=== PATIENT | female | born 1960 | race African-American/Black ===

== ENCOUNTER 2021-11-26 19:10 | Inpatient (IN) | payer MEDICAID ==
[~2021-11-26] VITALS: Ht 149.9 cm; Wt 65.3 kg
[2021-11-26] MEDS ORDERED: MORPHINE SULFATE 4 MG/ML CPJ (NOT FOR IM USE) IV STA (19:37)
[2021-11-26] MEDS ORDERED: ONDANSETRON HCL 4MG/2ML INJ IV STA (19:37)
[2021-11-26] MEDS ORDERED: SODIUM CHLORIDE 0.9% 1,000 ML IV ONE (19:45)
[2021-11-26 21:36] LABS: HEMATOCRIT. 34.8 % (36.0-48.0); HEMOGLOBIN. 11.6 g/dL (12.0-16.0); MEAN CORPUSCULAR HEMOGLOBIN 27.9 pg (28.0-32.0); MEAN PLATELET VOLUME 7.3 fl (7.4-10.4); PLATELET 950 x1000/uL (130-400); RED BLOOD CELL COUNT 4.14 mill/uL (4.2-5.4)
[2021-11-26 21:41] LABS: CHLORIDE 100 mEq/L (98-107); INR 1.4
[2021-11-26] MEDS ORDERED: VANCOMYCIN 1G PREMIX 200 ML IV ONE (21:45)
[2021-11-26] MEDS ORDERED: PIPERACILLIN/TAZ 3.375G PREMIX 50 ML IV NR (22:00)
[2021-11-26] MEDS ORDERED: SODIUM CHLORIDE 0.9% 1000ML BAG (SEPSIS BOLUS) IV NR (22:00)
[2021-11-26] MEDS ORDERED: VANCOMYCIN 1,000 MG in DEXT 5% WATER 250 ML IV NR (22:00)
[2021-11-26] MEDS ORDERED: VANCOMYCIN 1GM PMX (XELLIA) 200 ML IV NR (22:15)
[2021-11-26 22:19] LABS: CLARITY URINE CLOUDY (CLEAR); COLOR URINE DARK YELLOW (YELLOW); KETONES URINE 3+ (NEGATIVE); LEUKOCYTE ESTERASE URINE 1+ (NEGATIVE); NITRITE URINE POSITIVE (NEGATIVE); OCCULT BLOOD URINE 2+ (NEGATIVE); PH URINE 5.5 (4.5-8.0); PROTEIN URINE 1+ (NEGATIVE); SPECIFIC GRAVITY URINE 1.025 (1.005-1.030)
[2021-11-26 23:40] LABS: PLATELET ESTIMATE MARKEDLY INCREASED
[2021-11-27] MEDS ORDERED: MORPHINE SULFATE 4 MG/ML CPJ (NOT FOR IM USE) IV ONE
[2021-11-27] MEDS ORDERED: HYDROCODONE/ACETAMINOPHEN 10/325MG TABLET PO PRN (06:00)
[2021-11-27] MEDS: ONDANSETRON HCL 4MG/2ML INJ IV PRN ×2 (06:09→11:01)
[2021-11-27] MEDS ORDERED: IOHEXOL-300 100 ML BOTTLE ONE (06:14)
[2021-11-27] MEDS ORDERED: NALOXONE HCL 0.4 MG/ML 1ML VIAL IV PRN (06:15)
[2021-11-27] MEDS ORDERED: MORPHINE SULFATE 2 MG/ML CPJ (NOT FOR IM USE) IV NR (10:00)
[2021-11-27] MEDS: PANTOPRAZOLE SODIUM 40 MG/VIAL IV SCH (13:28)
[2021-11-27] MEDS: DEXT 5%/0.45% NACL 1000ML 1,000 ML IV SCH ×2 (13:28→21:40)
[2021-11-27 15:46] VITALS: BP 123/70
[2021-11-27 16:00] VITALS: BP 123/73
[2021-11-27 16:23] VITALS: BP 123/73
[2021-11-27] MEDS: MORPHINE SULFATE 2 MG/ML CPJ (NOT FOR IM USE) IV PRN (17:31)
[2021-11-27] MEDS: PIPERACILLIN/TAZOBACTAM 3.375 G in DEXTROSE 5% WATER 50 ML IV SCH ×2 (17:31→23:35)
[2021-11-27] MEDS: VANCOMYCIN 750MG PMX (XELLIA) 150 ML IV SCH (17:31)
[2021-11-27 20:00] VITALS: BP 124/77
[2021-11-28] VITALS: BP 129/77
[2021-11-28 04:00] VITALS: BP 123/78
[2021-11-28] MEDS: VANCOMYCIN 750MG PMX (XELLIA) 150 ML IV SCH (05:24)
[2021-11-28] MEDS: PIPERACILLIN/TAZOBACTAM 3.375 G in DEXTROSE 5% WATER 50 ML IV SCH ×3 (06:01→21:07)
[2021-11-28 07:20] LABS: HEMATOCRIT. 27.3 % (36.0-48.0); HEMOGLOBIN. 8.8 g/dL (12.0-16.0); MEAN CORPUSCULAR HEMOGLOBIN 26.9 pg (28.0-32.0); MEAN PLATELET VOLUME 7.3 fl (7.4-10.4); PLATELET 713 x1000/uL (130-400); RED BLOOD CELL COUNT 3.26 mill/uL (4.2-5.4)
[2021-11-28 07:39] LABS: CHLORIDE 109 mEq/L (98-107)
[2021-11-28 08:00] VITALS: BP 130/76
[2021-11-28] MEDS: PANTOPRAZOLE SODIUM 40 MG/VIAL IV SCH ×2 (09:21→21:07)
[2021-11-28 12:00] VITALS: BP 139/79
[2021-11-28] MEDS ORDERED: POTASSIUM CHLORIDE INJ 40 MEQ in DEXT 5% WATER 250 ML IV NR (12:00)
[2021-11-28] MEDS: DEXT 5%/0.45% NACL 1000ML 1,000 ML IV SCH ×2 (12:42→21:08)
[2021-11-28] MEDS ORDERED: LIDOCAINE HCL 1% 10 MG/ML 10ML VIAL ONE (13:27)
[2021-11-28 16:00] VITALS: BP 135/76
[2021-11-28] MEDS: VANCOMYCIN 1GM PMX (XELLIA) 200 ML IV SCH (17:21)
[2021-11-28 17:56] LABS: PLATELET ESTIMATE INCREASED
[2021-11-28 20:00] VITALS: BP 123/71
[2021-11-28 21:54] LABS: HEMATOCRIT 26.5 % (36.0-48.0); HEMOGLOBIN 8.7 g/dL (12.0-16.0)
[2021-11-29] VITALS: BP 127/75
[2021-11-29 04:00] VITALS: BP 129/72
[2021-11-29] MEDS: DEXT 5%/0.45% NACL 1000ML 1,000 ML IV SCH ×2 (04:16→14:08)
[2021-11-29] MEDS: PIPERACILLIN/TAZOBACTAM 3.375 G in DEXTROSE 5% WATER 50 ML IV SCH ×3 (05:42→21:40)
[2021-11-29 07:15] LABS: HEMATOCRIT 25.9 % (36.0-48.0); HEMOGLOBIN 8.6 g/dL (12.0-16.0)
[2021-11-29 07:34] LABS: CHLORIDE 110 mEq/L (98-107)
[2021-11-29 08:05] VITALS: BP 130/77
[2021-11-29] MEDS: PANTOPRAZOLE SODIUM 40 MG/VIAL IV SCH ×2 (08:15→21:39)
[2021-11-29] MEDS: VANCOMYCIN 1GM PMX (XELLIA) 200 ML IV SCH ×2 (11:30→20:50)
[2021-11-29 12:00] VITALS: BP 136/71
[2021-11-29 13:17] LABS: HEMATOCRIT 27.6 % (36.0-48.0); HEMOGLOBIN 8.8 g/dL (12.0-16.0)
[2021-11-29] MEDS ORDERED: POTASSIUM CHLORIDE INJ 40 MEQ in DEXT 5% WATER 250 ML IV NR (15:00)
[2021-11-29] MEDS: MORPHINE SULFATE 2 MG/ML CPJ (NOT FOR IM USE) IV PRN (15:42)
[2021-11-29 16:03] VITALS: BP 130/65
[2021-11-29] MEDS: DEXT 5%/0.45% NACL KCL 40MEQ/L 1,000 ML IV SCH (17:30)
[2021-11-29 20:00] VITALS: BP 134/71
[2021-11-30] VITALS: BP 132/86
[2021-11-30] MEDS: DEXT 5%/0.45% NACL KCL 40MEQ/L 1,000 ML IV SCH ×3 (01:36→17:20)
[2021-11-30 04:00] VITALS: BP 136/79
[2021-11-30] MEDS: PIPERACILLIN/TAZOBACTAM 3.375 G in DEXTROSE 5% WATER 50 ML IV SCH ×3 (06:17→21:31)
[2021-11-30 07:39] LABS: HEMATOCRIT. 27.9 % (36.0-48.0); HEMOGLOBIN. 9.1 g/dL (12.0-16.0); MEAN CORPUSCULAR HEMOGLOBIN 27.4 pg (28.0-32.0); MEAN CORPUSCULAR VOLUME 83.8 fL (81.0-99.0); MEAN PLATELET VOLUME 7.4 fl (7.4-10.4); PLATELET 680 x1000/uL (130-400); RED BLOOD CELL COUNT 3.33 mill/uL (4.2-5.4); RED CELL DISTRIBUTION WIDTH 16.9 % (11.6-14.6)
[2021-11-30 07:53] LABS: CHLORIDE 110 mEq/L (98-107)
[2021-11-30 08:00] VITALS: BP 160/106
[2021-11-30 08:12] LABS: CREATINE KINASE 34 IU/L (26-192)
[2021-11-30] MEDS: VANCOMYCIN 1GM PMX (XELLIA) 200 ML IV SCH ×2 (08:48→20:13)
[2021-11-30] MEDS ORDERED: PANTOPRAZOLE SODIUM 40 MG/VIAL IV ONE (11:29)
[2021-11-30] MEDS ORDERED: MORPHINE SULFATE 2 MG/ML CPJ (NOT FOR IM USE) IV ONE ×2 (11:30→11:56)
[2021-11-30] MEDS: MORPHINE SULFATE 2 MG/ML CPJ (NOT FOR IM USE) IV PRN ×2 (11:52→18:40)
[2021-11-30] MEDS: PANTOPRAZOLE SODIUM 40 MG/VIAL IV SCH ×2 (11:52→21:31)
[2021-11-30 12:00] VITALS: BP_SYST 131; BP_SYST 156; BP_DIAS 71; BP_DIAS 93
[2021-11-30 13:14] LABS: PLATELET ESTIMATE INCREASED
[2021-11-30 16:00] VITALS: BP 136/71
[2021-11-30 20:00] VITALS: BP 149/75
[2021-12-01] VITALS: BP 135/79
[2021-12-01] MEDS: DEXT 5%/0.45% NACL KCL 40MEQ/L 1,000 ML IV SCH ×3 (02:04→17:00)
[2021-12-01 04:00] VITALS: BP 142/65
[2021-12-01] MEDS: PIPERACILLIN/TAZOBACTAM 3.375 G in DEXTROSE 5% WATER 50 ML IV SCH ×3 (06:28→21:15)
[2021-12-01 07:27] LABS: HEMOGLOBIN. 9.1 g/dL (12.0-16.0); MEAN CORPUSCULAR HEMOGLOBIN 27.2 pg (28.0-32.0); MEAN CORPUSCULAR VOLUME 84.3 fL (81.0-99.0); MEAN PLATELET VOLUME 7.2 fl (7.4-10.4); PLATELET 614 x1000/uL (130-400); RED BLOOD CELL COUNT 3.33 mill/uL (4.2-5.4); RED CELL DISTRIBUTION WIDTH 16.9 % (11.6-14.6)
[2021-12-01 07:58] LABS: CHLORIDE 109 mEq/L (98-107)
[2021-12-01 08:00] VITALS: BP 140/81
[2021-12-01] MEDS: MORPHINE SULFATE 2 MG/ML CPJ (NOT FOR IM USE) IV PRN ×2 (09:50→21:10)
[2021-12-01] MEDS: VANCOMYCIN 1GM PMX (XELLIA) 200 ML IV SCH ×2 (10:23→20:49)
[2021-12-01 12:00] VITALS: BP 145/86
[2021-12-01] MEDS: PANTOPRAZOLE SODIUM 40 MG/VIAL IV SCH ×2 (12:49→21:07)
[2021-12-01 14:30] LABS: PLATELET ESTIMATE INCREASED
[2021-12-01 16:00] VITALS: BP 131/80
[2021-12-01 20:00] VITALS: BP 138/76
[2021-12-02] VITALS: BP 157/82
[2021-12-02] MEDS: DEXT 5%/0.45% NACL KCL 40MEQ/L 1,000 ML IV SCH ×2 (02:15→15:45)
[2021-12-02 04:00] VITALS: BP 136/86
[2021-12-02] MEDS: PIPERACILLIN/TAZOBACTAM 3.375 G in DEXTROSE 5% WATER 50 ML IV SCH (06:13)
[2021-12-02 06:31] LABS: HEMATOCRIT. 28.2 % (36.0-48.0); HEMOGLOBIN. 9.1 g/dL (12.0-16.0); MEAN CORPUSCULAR HEMOGLOBIN 27.9 pg (28.0-32.0); MEAN CORPUSCULAR VOLUME 86.1 fL (81.0-99.0); MEAN PLATELET VOLUME 7.3 fl (7.4-10.4); PLATELET 663 x1000/uL (130-400); RED BLOOD CELL COUNT 3.27 mill/uL (4.2-5.4); RED CELL DISTRIBUTION WIDTH 17.1 % (11.6-14.6)
[2021-12-02 06:45] LABS: CHLORIDE 111 mEq/L (98-107)
[2021-12-02 08:00] VITALS: BP 131/56
[2021-12-02] MEDS: VANCOMYCIN 1GM PMX (XELLIA) 200 ML IV SCH ×2 (09:03→21:49)
[2021-12-02] MEDS: MORPHINE SULFATE 2 MG/ML CPJ (NOT FOR IM USE) IV PRN (09:04)
[2021-12-02] MEDS: PANTOPRAZOLE SODIUM 40 MG/VIAL IV SCH ×2 (11:45→21:49)
[2021-12-02 12:00] VITALS: BP 151/88
[2021-12-02 12:19] LABS: PLATELET ESTIMATE INCREASED
[2021-12-02 16:00] VITALS: BP 139/87
[2021-12-02] MEDS ORDERED: MORPHINE SULFATE 2 MG/ML CPJ (NOT FOR IM USE) IV PRN ×3 (17:32→21:45)
[2021-12-02 20:00] VITALS: BP 134/78
[2021-12-03] VITALS: BP 142/86
[2021-12-03] MEDS: DEXT 5%/0.45% NACL KCL 40MEQ/L 1,000 ML IV SCH ×3 (00:52→17:18)
[2021-12-03] MEDS: MORPHINE SULFATE 4 MG/ML CPJ (NOT FOR IM USE) IV PRN ×4 (01:43→23:41)
[2021-12-03 04:00] VITALS: BP 184/82
[2021-12-03 08:00] VITALS: BP 145/88
[2021-12-03 08:02] LABS: CHLORIDE 110 mEq/L (98-107)
[2021-12-03 08:07] LABS: HEMATOCRIT. 26.7 % (36.0-48.0); HEMOGLOBIN. 8.9 g/dL (12.0-16.0); MEAN CORPUSCULAR HEMOGLOBIN 28.1 pg (28.0-32.0); MEAN CORPUSCULAR VOLUME 84.3 fL (81.0-99.0); MEAN PLATELET VOLUME 7.3 fl (7.4-10.4); PLATELET 629 x1000/uL (130-400); RED BLOOD CELL COUNT 3.16 mill/uL (4.2-5.4); RED CELL DISTRIBUTION WIDTH 16.9 % (11.6-14.6)
[2021-12-03] MEDS: VANCOMYCIN 1GM PMX (XELLIA) 200 ML IV SCH ×2 (09:01→21:22)
[2021-12-03] MEDS: PANTOPRAZOLE SODIUM 40 MG/VIAL IV SCH ×2 (09:03→21:22)
[2021-12-03 12:00] VITALS: BP 140/82
[2021-12-03 13:52] LABS: PLATELET ESTIMATE INCREAS
[2021-12-03 16:00] VITALS: BP 139/80
[2021-12-03 20:00] VITALS: BP 121/73
[2021-12-04] VITALS: BP 146/80
[2021-12-04 04:00] VITALS: BP 139/85
[2021-12-04 08:00] VITALS: BP 151/87
[2021-12-04] MEDS: DEXT 5%/0.45% NACL KCL 40MEQ/L 1,000 ML IV SCH ×2 (09:00→17:30)
[2021-12-04] MEDS: PANTOPRAZOLE SODIUM 40 MG/VIAL IV SCH ×2 (09:33→22:40)
[2021-12-04] MEDS: VANCOMYCIN 1GM PMX (XELLIA) 200 ML IV SCH (09:33)
[2021-12-04] MEDS: MORPHINE SULFATE 4 MG/ML CPJ (NOT FOR IM USE) IV PRN ×2 (09:34→17:31)
[2021-12-04 12:00] VITALS: BP 143/82
[2021-12-04 16:00] VITALS: BP 149/77
[2021-12-04 20:00] VITALS: BP 146/79
[2021-12-04] MEDS: TOTAL PARENTERAL NUTRITION 1,600 ML IV SCH (22:40)
[2021-12-04] MEDS: PHYTONADIONE 10MG/ML AMP SUBCUT SCH (22:42)
[2021-12-05] VITALS: BP 133/78
[2021-12-05] MEDS: BLOOD SUGAR DIAGNOSTIC STRIP TEST SCH ×5 (00:21→23:11)
[2021-12-05 04:00] VITALS: BP 156/73
[2021-12-05] MEDS: MORPHINE SULFATE 4 MG/ML CPJ (NOT FOR IM USE) IV PRN ×2 (04:12→18:23)
[2021-12-05] MEDS ORDERED: VANCOMYCIN 1GM PMX (XELLIA) 200 ML IV SCH (06:00)
[2021-12-05 06:01] LABS: BASOPHILS % 0.4 % (0.0-2.0); EOSINOPHILS % 0.6 % (0.0-5.0); HEMATOCRIT. 26.4 % (36.0-48.0); HEMOGLOBIN. 8.8 g/dL (12.0-16.0); LYMPHOCYTES % 10.2 % (20.0-50.0); MEAN CORPUSCULAR HEMOGLOBIN 27.9 pg (28.0-32.0); MEAN CORPUSCULAR VOLUME 83.2 fL (81.0-99.0); MONOCYTES % 12.4 % (2.0-8.0); NEUTROPHILS % 76.4 % (40.0-76.0); PLATELET 605 x1000/uL (130-400); RED BLOOD CELL COUNT 3.17 mill/uL (4.2-5.4); RED CELL DISTRIBUTION WIDTH 17.5 % (11.6-14.6)
[2021-12-05 07:45] LABS: CHLORIDE 108 mEq/L (98-107)
[2021-12-05 07:58] LABS: PHOSPHORUS 2.8 mg/dL (2.5-4.9)
[2021-12-05 08:28] VITALS: BP 114/79
[2021-12-05] MEDS: PANTOPRAZOLE SODIUM 40 MG/VIAL IV SCH ×2 (08:52→20:57)
[2021-12-05] MEDS ORDERED: NALOXONE HCL 0.4MG/ML VIAL IV PRN (11:15)
[2021-12-05 12:20] VITALS: BP 124/87
[2021-12-05] MEDS: VANCOMYCIN 1GM PMX (XELLIA) 200 ML IV SCH (13:40)
[2021-12-05 16:00] VITALS: BP 110/85
[2021-12-05] MEDS: ONDANSETRON HCL 4MG/2ML INJ IV PRN (18:23)
[2021-12-05 20:00] VITALS: BP 146/80
[2021-12-05] MEDS: FAT EMULSIONS 250 ML IV SCH ×2 (20:57→23:11)
[2021-12-05] MEDS ORDERED: FAT EMULSIONS 500 ML IV SCH (21:00)
[2021-12-05] MEDS: TOTAL PARENTERAL NUTRITION 1,600 ML IV SCH (22:15)
[2021-12-06] VITALS: BP 150/81
[2021-12-06] MEDS: MORPHINE SULFATE 4 MG/ML CPJ (NOT FOR IM USE) IV PRN ×5 (01:33→23:40)
[2021-12-06 04:00] VITALS: BP 147/73
[2021-12-06] MEDS: BLOOD SUGAR DIAGNOSTIC STRIP TEST SCH ×2 (05:39→12:51)
[2021-12-06 06:51] LABS: BASOPHILS % 0.6 % (0.0-2.0); EOSINOPHILS % 1.1 % (0.0-5.0); HEMATOCRIT. 28.4 % (36.0-48.0); HEMOGLOBIN. 9.3 g/dL (12.0-16.0); LYMPHOCYTES % 14.1 % (20.0-50.0); MEAN CORPUSCULAR VOLUME 85.5 fL (81.0-99.0); MEAN PLATELET VOLUME 6.8 fl (7.4-10.4); MONOCYTES % 7.2 % (2.0-8.0); PLATELET 487 x1000/uL (130-400); RED BLOOD CELL COUNT 3.32 mill/uL (4.2-5.4); RED CELL DISTRIBUTION WIDTH 17.6 % (11.6-14.6)
[2021-12-06 06:57] LABS: INR 1.1; PARTIAL THROMBOPLASTIN TIME 25.6 sec (23.4-31.0); PROTHROMBIN TIME 11.8 sec (9.6-11.0)
[2021-12-06 07:12] LABS: CHLORIDE 106 mEq/L (98-107)
[2021-12-06] MEDS: VANCOMYCIN 1GM PMX (XELLIA) 200 ML IV SCH (08:00)
[2021-12-06] MEDS: PANTOPRAZOLE SODIUM 40 MG/VIAL IV SCH ×2 (09:00→23:40)
[2021-12-06] MEDS ORDERED: HYDROMORPHONE HCL/PF 2MG/ML CPJ IV PRN (10:00)
[2021-12-06] MEDS ORDERED: MEPERIDINE HCL/PF 25MG/ML CPJ IV PRN (10:00)
[2021-12-06] MEDS ORDERED: ONDANSETRON HCL 4MG/2ML INJ IV PRN (10:00)
[2021-12-06] MEDS: FENTANYL CITRATE/PF 50MCG/ML 2ML VIAL IV PRN ×4 (10:21→11:03)
[2021-12-06 12:18] VITALS: BP 151/93
[2021-12-06 16:00] VITALS: BP 158/91
[2021-12-06 20:00] VITALS: BP 156/75
[2021-12-06] MEDS: TOTAL PARENTERAL NUTRITION 1,600 ML IV SCH (21:00)
[2021-12-07] VITALS: BP 155/87
[2021-12-07] MEDS: VANCOMYCIN 1GM PMX (XELLIA) 200 ML IV SCH ×2 (01:20→23:12)
[2021-12-07 04:00] VITALS: BP 139/85
[2021-12-07 05:21] LABS: HEMATOCRIT. 29.2 % (36.0-48.0); HEMOGLOBIN. 9.4 g/dL (12.0-16.0); MEAN CORPUSCULAR HEMOGLOBIN 27.2 pg (28.0-32.0); MEAN CORPUSCULAR VOLUME 84.2 fL (81.0-99.0); MEAN PLATELET VOLUME 7.2 fl (7.4-10.4); PLATELET 526 x1000/uL (130-400); RED BLOOD CELL COUNT 3.46 mill/uL (4.2-5.4); RED CELL DISTRIBUTION WIDTH 17.7 % (11.6-14.6)
[2021-12-07 05:52] LABS: CHLORIDE 109 mEq/L (98-107)
[2021-12-07] MEDS: BLOOD SUGAR DIAGNOSTIC STRIP TEST SCH ×4 (06:46→17:53)
[2021-12-07] MEDS: MORPHINE SULFATE 4 MG/ML CPJ (NOT FOR IM USE) IV PRN ×3 (06:58→21:30)
[2021-12-07 08:00] VITALS: BP 116/72
[2021-12-07] MEDS: PANTOPRAZOLE SODIUM 40 MG/VIAL IV SCH ×2 (10:01→21:30)
[2021-12-07 11:21] LABS: PLATELET ESTIMATE INCREASED
[2021-12-07 12:00] VITALS: BP 121/73
[2021-12-07 16:00] VITALS: BP 120/71
[2021-12-07] MEDS: TOTAL PARENTERAL NUTRITION 1,600 ML IV SCH (18:16)
[2021-12-07] MEDS: FAT EMULSIONS 250 ML IV SCH (18:27)
[2021-12-07 20:00] VITALS: BP 141/86
[2021-12-08] VITALS (7 sets, daily range): BP systolic 120–139; BP diastolic 46–88
[2021-12-08] MEDS: FAT EMULSIONS 250 ML IV SCH (02:08)
[2021-12-08 06:56] LABS: HEMATOCRIT. 26.6 % (36.0-48.0); HEMOGLOBIN. 8.7 g/dL (12.0-16.0); MEAN CORPUSCULAR VOLUME 82.8 fL (81.0-99.0); MEAN PLATELET VOLUME 7.3 fl (7.4-10.4); PLATELET 439 x1000/uL (130-400); RED BLOOD CELL COUNT 3.22 mill/uL (4.2-5.4); RED CELL DISTRIBUTION WIDTH 17.8 % (11.6-14.6)
[2021-12-08 07:10] LABS: CHLORIDE 108 mEq/L (98-107)
[2021-12-08] MEDS: PANTOPRAZOLE SODIUM 40 MG/VIAL IV SCH ×2 (08:31→21:31)
[2021-12-08] MEDS: BLOOD SUGAR DIAGNOSTIC STRIP TEST SCH (08:39)
[2021-12-08 09:42] LABS: PLATELET ESTIMATE SLIGHTLY INCREASED
[2021-12-08] MEDS: VANCOMYCIN 750MG PMX (XELLIA) 150 ML IV SCH ×2 (10:36→21:31)
[2021-12-08] MEDS: MORPHINE SULFATE 4 MG/ML CPJ (NOT FOR IM USE) IV PRN ×2 (12:38→21:31)
[2021-12-08] MEDS: TOTAL PARENTERAL NUTRITION 1,600 ML IV SCH (21:31)
[2021-12-09] VITALS: BP 126/74
[2021-12-09 06:00] VITALS: BP 117/73
[2021-12-09 07:38] LABS: BASOPHILS % 0.5 % (0.0-2.0); EOSINOPHILS % 1.1 % (0.0-5.0); HEMOGLOBIN. 8.2 g/dL (12.0-16.0); LYMPHOCYTES % 8.4 % (20.0-50.0); MEAN CORPUSCULAR HEMOGLOBIN 27.2 pg (28.0-32.0); MEAN CORPUSCULAR VOLUME 82.8 fL (81.0-99.0); MEAN PLATELET VOLUME 7.6 fl (7.4-10.4); PLATELET 384 x1000/uL (130-400); RED BLOOD CELL COUNT 3.02 mill/uL (4.2-5.4); RED CELL DISTRIBUTION WIDTH 17.3 % (11.6-14.6)
[2021-12-09 07:44] LABS: CHLORIDE 106 mEq/L (98-107)
[2021-12-09 08:00] VITALS: BP 129/70
[2021-12-09] MEDS: PANTOPRAZOLE SODIUM 40 MG/VIAL IV SCH ×2 (08:59→21:11)
[2021-12-09] MEDS: MORPHINE SULFATE 4 MG/ML CPJ (NOT FOR IM USE) IV PRN ×3 (08:59→18:21)
[2021-12-09] MEDS: VANCOMYCIN 750MG PMX (XELLIA) 150 ML IV SCH ×2 (09:00→21:11)
[2021-12-09] MEDS: BLOOD SUGAR DIAGNOSTIC STRIP TEST SCH (09:55)
[2021-12-09 12:00] VITALS: BP 137/89
[2021-12-09 16:00] VITALS: BP 133/61
[2021-12-09 20:00] VITALS: BP 136/76
[2021-12-09] MEDS: TOTAL PARENTERAL NUTRITION 1,600 ML IV SCH (21:12)
[2021-12-10] VITALS: BP 138/78
[2021-12-10] MEDS: MORPHINE SULFATE 4 MG/ML CPJ (NOT FOR IM USE) IV PRN ×4 (03:34→22:05)
[2021-12-10 04:00] VITALS: BP 131/76
[2021-12-10 08:00] VITALS: BP 130/72
[2021-12-10] MEDS: PANTOPRAZOLE SODIUM 40 MG/VIAL IV SCH ×2 (08:39→21:27)
[2021-12-10] MEDS: VANCOMYCIN 750MG PMX (XELLIA) 150 ML IV SCH (08:40)
[2021-12-10] MEDS: BLOOD SUGAR DIAGNOSTIC STRIP TEST SCH (09:00)
[2021-12-10 10:44] LABS: BASOPHILS % 0.7 % (0.0-2.0); EOSINOPHILS % 0.8 % (0.0-5.0); HEMATOCRIT. 25.2 % (36.0-48.0); HEMOGLOBIN. 8.2 g/dL (12.0-16.0); LYMPHOCYTES % 12.1 % (20.0-50.0); MEAN CORPUSCULAR HEMOGLOBIN 27.2 pg (28.0-32.0); MEAN CORPUSCULAR VOLUME 83.9 fL (81.0-99.0); MEAN PLATELET VOLUME 7.8 fl (7.4-10.4); NEUTROPHILS % 75.4 % (40.0-76.0); PLATELET 372 x1000/uL (130-400); RED CELL DISTRIBUTION WIDTH 17.4 % (11.6-14.6)
[2021-12-10 10:52] LABS: CHLORIDE 106 mEq/L (98-107)
[2021-12-10 12:00] VITALS: BP 138/74
[2021-12-10 16:00] VITALS: BP 137/70
[2021-12-10 20:00] VITALS: BP 108/61
[2021-12-10] MEDS ORDERED: VANCOMYCIN 500 MG in DEXT 5% WATER 100 ML IV SCH (21:00)
[2021-12-11] VITALS: BP 109/71
[2021-12-11 04:00] VITALS: BP 108/75
[2021-12-11] MEDS: PANTOPRAZOLE SODIUM 40 MG/VIAL IV SCH ×2 (07:19→20:45)
[2021-12-11] MEDS: MORPHINE SULFATE 4 MG/ML CPJ (NOT FOR IM USE) IV PRN ×2 (07:20→15:50)
[2021-12-11 08:00] VITALS: BP 114/64
[2021-12-11] MEDS: BLOOD SUGAR DIAGNOSTIC STRIP TEST SCH (09:00)
[2021-12-11 12:00] VITALS: BP 122/77
[2021-12-11 16:00] VITALS: BP 126/68
[2021-12-11] MEDS ORDERED: MORPHINE SULFATE 4 MG/ML CPJ (NOT FOR IM USE) IV PRN (19:00)
[2021-12-11] MEDS: HYDROCODONE/ACETAMINOPHEN 10/325MG TABLET PO PRN (20:45)
[2021-12-11] MEDS: PHYTONADIONE 10MG/ML AMP SUBCUT SCH (20:46)
[2021-12-12 00:19] VITALS: BP 124/75
[2021-12-12 04:00] VITALS: BP 122/79
[2021-12-12 07:42] VITALS: BP 130/73
[2021-12-12] MEDS: BLOOD SUGAR DIAGNOSTIC STRIP TEST SCH (09:19)
[2021-12-12] MEDS: PANTOPRAZOLE SODIUM 40 MG/VIAL IV SCH ×2 (09:19→21:58)
[2021-12-12 11:38] VITALS: BP 124/69
[2021-12-12 16:00] VITALS: BP 135/80
[2021-12-12] MEDS: HYDROCODONE/ACETAMINOPHEN 10/325MG TABLET PO PRN (17:19)
[2021-12-12 20:00] VITALS: BP 112/73
[2021-12-13] VITALS: BP 127/67
[2021-12-13 04:00] VITALS: BP 109/63
[2021-12-13 06:39] LABS: BASOPHILS % 0.5 % (0.0-2.0); EOSINOPHILS % 0.9 % (0.0-5.0); HEMATOCRIT. 23.9 % (36.0-48.0); HEMOGLOBIN. 7.8 g/dL (12.0-16.0); LYMPHOCYTES % 17.6 % (20.0-50.0); MEAN CORPUSCULAR HEMOGLOBIN 27.4 pg (28.0-32.0); MEAN CORPUSCULAR VOLUME 84.1 fL (81.0-99.0); MEAN PLATELET VOLUME 7.7 fl (7.4-10.4); MONOCYTES % 10.8 % (2.0-8.0); NEUTROPHILS % 70.2 % (40.0-76.0); PLATELET 383 x1000/uL (130-400); RED BLOOD CELL COUNT 2.85 mill/uL (4.2-5.4); RED CELL DISTRIBUTION WIDTH 17.7 % (11.6-14.6)
[2021-12-13 07:02] LABS: CHLORIDE 108 mEq/L (98-107)
[2021-12-13 07:56] VITALS: BP 130/69
[2021-12-13] MEDS: PANTOPRAZOLE SODIUM 40 MG/VIAL IV SCH ×2 (08:53→21:24)
[2021-12-13] MEDS: BLOOD SUGAR DIAGNOSTIC STRIP TEST SCH (09:15)
[2021-12-13] MEDS: HYDROCODONE/ACETAMINOPHEN 10/325MG TABLET PO PRN ×2 (10:44→21:27)
[2021-12-13 11:55] VITALS: BP 125/67
[2021-12-13 16:38] VITALS: BP 123/79
[2021-12-13 20:00] VITALS: BP 126/68
[2021-12-14] VITALS (7 sets, daily range): BP systolic 117–152; BP diastolic 65–85
[2021-12-14 07:29] LABS: BASOPHILS % 0.6 % (0.0-2.0); EOSINOPHILS % 1.5 % (0.0-5.0); HEMATOCRIT. 23.8 % (36.0-48.0); HEMOGLOBIN. 7.8 g/dL (12.0-16.0); LYMPHOCYTES % 16.3 % (20.0-50.0); MEAN CORPUSCULAR HEMOGLOBIN 27.8 pg (28.0-32.0); MEAN CORPUSCULAR VOLUME 84.7 fL (81.0-99.0); MEAN PLATELET VOLUME 7.6 fl (7.4-10.4); MONOCYTES % 11.4 % (2.0-8.0); NEUTROPHILS % 70.2 % (40.0-76.0); PLATELET 394 x1000/uL (130-400); RED BLOOD CELL COUNT 2.81 mill/uL (4.2-5.4)
[2021-12-14 07:42] LABS: CHLORIDE 109 mEq/L (98-107)
[2021-12-14] MEDS: PANTOPRAZOLE SODIUM 40 MG/VIAL IV SCH ×2 (08:18→21:24)
[2021-12-14] MEDS: BLOOD SUGAR DIAGNOSTIC STRIP TEST SCH (08:19)
[2021-12-14] MEDS ORDERED: AMLO5TAB88 MT (12:53)
[2021-12-14] MEDS ORDERED: EZET10TA13 MT (12:54)
[2021-12-14] MEDS ORDERED: BUTE12CR2 TP (12:54)
[2021-12-14] MEDS ORDERED: HYDR-4001 MT (12:54)
[2021-12-14] MEDS ORDERED: NAPR-681 MT (12:55)
[2021-12-14] MEDS: POTASSIUM CHLORIDE 20MEQ TABLET SR PO SCH (16:50)
[2021-12-14] MEDS: HYDROCODONE/ACETAMINOPHEN 10/325MG TABLET PO PRN (16:52)
[2021-12-15 04:00] VITALS: BP 126/97
[2021-12-15 06:18] LABS: BASOPHILS % 0.7 % (0.0-2.0); HEMATOCRIT. 27.7 % (36.0-48.0); LYMPHOCYTES % 15.5 % (20.0-50.0); MEAN CORPUSCULAR HEMOGLOBIN 27.4 pg (28.0-32.0); MEAN CORPUSCULAR VOLUME 84.1 fL (81.0-99.0); MEAN PLATELET VOLUME 7.6 fl (7.4-10.4); MONOCYTES % 9.9 % (2.0-8.0); NEUTROPHILS % 72.9 % (40.0-76.0); PLATELET 502 x1000/uL (130-400); RED CELL DISTRIBUTION WIDTH 18.4 % (11.6-14.6)
[2021-12-15 08:00] VITALS: BP 128/87
[2021-12-15] MEDS: BLOOD SUGAR DIAGNOSTIC STRIP TEST SCH (09:00)
[2021-12-15] MEDS: POTASSIUM CHLORIDE 20MEQ TABLET SR PO SCH (09:18)
[2021-12-15] MEDS: PANTOPRAZOLE SODIUM 40 MG/VIAL IV SCH ×2 (09:18→21:29)
[2021-12-15 12:00] VITALS: BP 123/84
[2021-12-15 16:00] VITALS: BP 127/82
[2021-12-15] MEDS: HYDROCODONE/ACETAMINOPHEN 10/325MG TABLET PO PRN (17:38)
[2021-12-15] MEDS: EZETIMIBE 10MG TABLET PO SCH (17:38)
[2021-12-15 20:00] VITALS: BP 127/75
[2021-12-16] VITALS: BP 134/74
[2021-12-16 07:26] LABS: BASOPHILS % 0.7 % (0.0-2.0); EOSINOPHILS % 1.9 % (0.0-5.0); HEMATOCRIT. 27.5 % (36.0-48.0); HEMOGLOBIN. 8.8 g/dL (12.0-16.0); LYMPHOCYTES % 15.5 % (20.0-50.0); MEAN CORPUSCULAR HEMOGLOBIN 27.2 pg (28.0-32.0); MEAN CORPUSCULAR VOLUME 84.6 fL (81.0-99.0); MEAN PLATELET VOLUME 7.4 fl (7.4-10.4); MONOCYTES % 10.1 % (2.0-8.0); NEUTROPHILS % 71.8 % (40.0-76.0); PLATELET 459 x1000/uL (130-400); RED BLOOD CELL COUNT 3.25 mill/uL (4.2-5.4); RED CELL DISTRIBUTION WIDTH 18.5 % (11.6-14.6)
[2021-12-16 08:32] LABS: PHOSPHORUS 4.1 mg/dL (2.5-4.9)
[2021-12-16] MEDS: PANTOPRAZOLE SODIUM 40 MG/VIAL IV SCH (08:40)
[2021-12-16] MEDS: EZETIMIBE 10MG TABLET PO SCH (08:41)
[2021-12-16] MEDS: POTASSIUM CHLORIDE 20MEQ TABLET SR PO SCH (08:41)
[2021-12-16] MEDS: BLOOD SUGAR DIAGNOSTIC STRIP TEST SCH (08:41)
[2021-12-16 12:00] VITALS: BP 130/87
[2021-12-16 17:10] VITALS: BP 138/68
== END 2021-12-16 19:24 | DRG 710 ==
LOC: ER 19:10 → MICUSO 11-27 01:22 → 7EST 11-27 14:45
PROVIDERS: ADMIT Internal Medicine; ATTEND Internal Medicine
PROC: 0D9670Z Drainage of Stomach with Drainage Device, Via Natural or Artificial Opening (ICD-10-PCS; 2021-11-27)
PROC: 05HY33Z Insertion of Infusion Device into Upper Vein, Percutaneous Approach (ICD-10-PCS; 2021-11-28)
PROC: B54MZZA Ultrasonography of Right Upper Extremity Veins, Guidance (ICD-10-PCS; 2021-11-28)
PROC: 3E0336Z Introduction of Nutritional Substance into Peripheral Vein, Percutaneous Approach (ICD-10-PCS; 2021-11-29)
PROC: 0D1B0Z4 Bypass Ileum to Cutaneous, Open Approach (ICD-10-PCS; principal; 2021-12-06)
PROC: 0WQF0ZZ Repair Abdominal Wall, Open Approach (ICD-10-PCS; 2021-12-06)
DX: A41.81 Sepsis due to Enterococcus (principal); E43 Unspecified severe protein-calorie malnutrition; K56.609 Unspecified intestinal obstruction, unspecified as to partial versus complete obstruction; C56.1 Malignant neoplasm of right ovary; R18.8 Other ascites; K92.2 Gastrointestinal hemorrhage, unspecified; N13.6 Pyonephrosis; D64.9 Anemia, unspecified; Z66 Do not resuscitate; K76.0 Fatty (change of) liver, not elsewhere classified; R65.20 Severe sepsis without septic shock; K86.9 Disease of pancreas, unspecified; I10 Essential (primary) hypertension; E78.5 Hyperlipidemia, unspecified; K42.9 Umbilical hernia without obstruction or gangrene; E78.00 Pure hypercholesterolemia, unspecified; D18.03 Hemangioma of intra-abdominal structures; Z20.822 Contact with and (suspected) exposure to COVID-19; K43.9 Ventral hernia without obstruction or gangrene; R59.0 Localized enlarged lymph nodes; E86.0 Dehydration; Z85.038 Personal history of other malignant neoplasm of large intestine; Z90.49 Acquired absence of other specified parts of digestive tract; Z68.29 Body mass index [BMI] 29.0-29.9, adult
CPT/HCPCS: 36415; 71045; 74177; 76937; 80048; 80053; 80202; 81003; 82378; 82550; 82962; 83605; 83735; 84100; 84145; 84478; 84484; 85014; 85018; 85025; 86301; 86304; 86850; 86870; 86900; 87077; 87186; 87426; 88108; 93005; 93306; 97116; 97162; 97164; 97166; 97530; 97535; 99291; C1725; C1769; C9113; J2270; J2405; J2543; J3370; J3430; J3480; J3490; J7030; J7060; Q9967